=== PATIENT | male | born 1995 | race Caucasian/White ===

== ENCOUNTER 2016-11-01 15:15 | Emergency (ER) | payer BC, OTHER ==
[~2016-11-01] VITALS: Ht 182.9 cm; Wt 63.6 kg
[~2016-11-01 15:15] MED LIST: MAGIC MOUTHWASH1 ML MM
[2016-11-01 15:51] LABS: HEMATOCRIT 42.9 % (38.0-50.0); MCH 29.1 PG (29.0-34.0); MCV 83.1 FL (86-99); PLATELET COUNT 382 K/uL (156-360); RBC DIS.WIDTH-SD 36.2 % (39-53); RED BLOOD COUNT 5.16 M/uL (4.00-5.50); WHITE BLOOD COUNT 11.6 K/uL (4.1-10.2)
[2016-11-01 15:59] LABS: CHLORIDE 100 mEq/L (99-109); POTASSIUM 4.1 mEq/L (3.7-5.4); SODIUM 137 mEq/L (136-147)
[2016-11-01 16:01] LABS: GLUCOSE 109 mg/dL (70-99)
[2016-11-01 16:02] LABS: ANION GAP 12 MEQ/L (2-14)
[2016-11-01 16:03] LABS: TOTAL BILIRUBIN 1.4 mg/dL (0.0-1.0)
[2016-11-01 16:04] LABS: ALKALINE PHOSPHATASE 66 IU/L (3-129)
[2016-11-01 16:05] LABS: GFR ESTIMATE (CALCULATED) > 59 mL/min/
[2016-11-01 16:06] LABS: UREA NITROGEN (BUN) 11 mg/dL (9-23)
[2016-11-01 16:08] LABS: LIPASE 12 U/L (1.0-51.0)
[2016-11-01] MEDS ORDERED: BENTYL20 MG PO (17:13)
[2016-11-01] MEDS ORDERED: FLAGYL500 MG PO (17:13)
[2016-11-01] MEDS ORDERED: ZOFRAN ODT4 MG PO (17:13)
[2016-11-01] MEDS ORDERED: CIPRO500 MG PO (17:13)
[2016-11-01 17:43] LABS: ADD MIUA? YES; BILIRUBIN NEGATIVE; BLOOD MODERATE; COLOR COLORLESS ((YELLOW)); GLUCOSE (STRIP) NEGATIVE; KETONES 5; LEUKOCYTES NEGATIVE; NITRITE NEGATIVE; PROTEIN (STRIP) NEGATIVE; SPECIFIC GRAVITY 1.019 (1.000-1.030); UROBILINOGEN 0.2 MG/DL (0.2-1.0)
[2016-11-01 17:45] VITALS: BP 116/63
[2016-11-01 17:49] LABS: BACTERIA NONE SEEN /HPF; EPITHELIAL CELLS RARE /HPF; MUCUS NONE SEEN /LPF; WHITE BLOOD CELLS 0-5 /HPF (0-5)
== END 2016-11-01 17:47 | disposition home or self-care (01) ==
LOC: EME 15:15
PROVIDERS: Physician Assistant
DX: K52.9 Noninfective gastroenteritis and colitis, unspecified (principal); R31.9 Hematuria, unspecified; N50.811 Right testicular pain
CPT/HCPCS: 74177; 76870; 80053; 81003; 83690; 85027; 87651 90; 99281; 99285; J2405; J7030

== ENCOUNTER 2016-11-09 11:58 | Emergency (ER) | payer MEDICARE, OTHER ==
[~2016-11-09] VITALS: Ht 185.4 cm; Wt 58.2 kg
[~2016-11-09 11:58] MED LIST changes: +BENTYL20 MG PO; +CIPRO500 MG PO; +FLAGYL500 MG PO; +ZOFRAN ODT4 MG PO
[2016-11-09 13:33] LABS: ADD MIUA? YES; BILIRUBIN NEGATIVE; BLOOD SMALL; COLOR YELLOW ((YELLOW)); GLUCOSE (STRIP) NEGATIVE; KETONES NEGATIVE; LEUKOCYTES TRACE; NITRITE NEGATIVE; PROTEIN (STRIP) 30; SPECIFIC GRAVITY 1.019 (1.000-1.030); UROBILINOGEN 0.2 MG/DL (0.2-1.0)
[2016-11-09 13:34] LABS: BASOPHIL COUNT 0.1 K/uL (0-0.1); EOSINOPHIL (%) 0.9 % (0-5); EOSINOPHIL COUNT 0.1 K/uL (0-0.3); HEMATOCRIT 44.9 % (38.0-50.0); IMMATURE GRANULOCYTE (%) 0.4 % (0.0-0.7); INSTRUMENT ABS NEUTROPHIL CT 4.2 K/uL; MCH 29.1 PG (29.0-34.0); MCHC 34.3 G/DL (30.0-36.0); MCV 84.7 FL (86-99); MEAN PLAT.VOLUME 9.7 uM^3 (9.0-12.4); MONOCYTE (%) 6.7 % (3-12); MONOCYTE COUNT 0.4 K/uL (0-0.8); NEUTROPHIL (%) 74.2 % (45-76); NEUTROPHIL COUNT 4.2 K/uL (1.8-6.4); PLATELET COUNT 269 K/uL (156-360); RBC DIS.WIDTH-CV 12.8 % (11.8-14.6)
[2016-11-09 13:35] LABS: WHITE BLOOD COUNT 5.7 K/uL (4.1-10.2)
[2016-11-09 13:39] LABS: CHLORIDE 104 mEq/L (99-109); POTASSIUM 4.5 mEq/L (3.7-5.4); SODIUM 138 mEq/L (136-147)
[2016-11-09 13:41] LABS: BACTERIA RARE /HPF; CALCIUM OXALATE CRYSTALS 3+ /HPF; EPITHELIAL CELLS NONE SEEN /HPF; HYALINE CASTS 0-5 /LPF; MUCUS 1+ /LPF; WHITE BLOOD CELLS CLUMP FEW /HPF (0-5)
[2016-11-09 13:42] LABS: GLUCOSE 120 mg/dL (70-99)
[2016-11-09 13:43] LABS: ANION GAP 7 MEQ/L (2-14)
[2016-11-09 13:44] LABS: TOTAL BILIRUBIN 1.3 mg/dL (0.0-1.0)
[2016-11-09 13:45] LABS: ALKALINE PHOSPHATASE 69 IU/L (3-129); GFR ESTIMATE (CALCULATED) > 59 mL/min/
[2016-11-09 13:46] LABS: UREA NITROGEN (BUN) 9 mg/dL (9-23)
[2016-11-09 13:49] LABS: LIPASE 15 U/L (1.0-51.0)
[2016-11-09] MEDS ORDERED: BENTYL20 MG PO (16:55)
[2016-11-09] MEDS ORDERED: PROMETHAZINE HC25 M1 PO (16:55)
[2016-11-09 16:59] LABS: C DIFF TOXIN NEGATIVE (NEGATIVE)
[2016-11-09 17:00] LABS: PROBE CHECK PASS; SPECIMEN PROCESSING CONTROL PASS
[2016-11-09 17:13] LABS: DIRECT BILIRUBIN 0.5 mg/dL (0.0-0.3)
[2016-11-09] MEDS ORDERED: PYRIDIUM200 MG PO (17:28)
[2016-11-09 17:52] VITALS: BP 109/71
[2016-11-10 11:21] LABS: HBSG INDEX 0.21
[2016-11-10 11:22] LABS: ANTI-HEPATITIS A VIRUS (IGM) Nonreactive; HAV INDEX 0.14; HPCA INDEX 0.17
[2016-11-10 11:23] LABS: ANTI-HEPATITIS B CORE (IGM) Nonreactive; HBC IgM INDEX 0.08
[2016-11-12 13:16] LABS: CHLAMYDIA TRACHOMATIS NEGATIVE; NEISSERIA GONORRHOEAE NEGATIVE
== END 2016-11-09 17:53 | disposition home or self-care (01) ==
LOC: EME 11:58 → RME 11:58
PROVIDERS: Physician Assistant
DX: R10.32 Left lower quadrant pain (principal); R11.0 Nausea; R19.7 Diarrhea, unspecified; R30.0 Dysuria
CPT/HCPCS: 74022; 80053; 80074; 81003; 82248; 83690; 85025; 87086; 87177; 87206; 87329; 87491; 87493; 87506; 87591; 99281; 99283